=== PATIENT | female | born 1945 | race Caucasian/White ===

== ENCOUNTER 2024-07-19 12:24 | Emergency (ER) | payer MEDICARE, OTHER, SELFPAY ==
[2024-07-19 12:25] VITALS: BP 180/105
--- NOTE | 2024-07-19 13:13 | ED.GENMED ---
History of Present Illness
General
Chief Complaint: Musculo-Skeletal Complaint
Source: patient
Exam Limitations: none
Time Seen by Provider: 07/19/24 13:03
History of Present Illness
History of Present Illness:
Patient with ongoing knee pain. Seen by orthopedics last week. Negative x-ray at that time. Also had an ultrasound done 5 days ago which was unremarkable. However felt a pop in the back of the knee today with increasing pain and increasing pain
with weightbearing. No hip pain no ankle pain. Swelling is actually improved. No fever or chills.
Past History
Past History
ED Past Medical History: Hypercholesterolemia, Hypothyroidism and Other (Orthostatic hypotension)
ED Past Surgical History: Other (Lipoma)
Social History
Tobacco: Non-smoker
Alcohol: None
Drug: None
Personal:
Living: with family
Family History
Family History: Negative Diabetes, Hypertension or CAD
Review of Systems
Review of Systems
All Other Systems: Not applicable
Constitutional: Denies fever or chills
Phy Exam
Physical Exam
Physical Exam:
General: Nontoxic appearing in no distress
Skin: Warm and dry, no rash
Neuro: Alert, nontoxic, grossly nonfocal
Psychiatric: Good eye contact and appropriate
Musculoskeletal: Mild swelling of the right lower leg below the knee. No erythema or warmth. Good distal pulses and color. Good capillary refill. Achilles is intact. Ankle is nontender. Tib-fib nontender. No joint effusion. No warmth or
erythema. No pain with straight leg raising. Some tenderness behind the right knee. No cord.
Course
Orders/Labs/Results
Orders:
Orders
07/19/24 12:29
Knee, Right 4 or More Views [CR Knee- Right 4 Or More View*] Urgent
Comment:
Reason For Exam: felt pop in knee and having diff ambulate
07/19/24 13:12
Ketorolac [Toradol] 60 mg IM NOW STA
US Periph Venous LOWER Ext RT Urgent
Comment:
Reason For Exam: Ongoing posterior knee pain
07/19/24 17:02
Knee Immobilizer Right-Treatme ONCE
Vital Signs
Initial and Last Documented VS:
Initial Vital Signs
Temp Pulse Resp BP Pulse Ox
97.7 F 89 16 180/105 98
07/19/24 12:25 07/19/24 12:25 07/19/24 12:25 07/19/24 12:25 07/19/24 12:25
Last Documented Vital Signs
Temp Pulse Resp BP Pulse Ox
97.7 F 84 18 153/89 98
07/19/24 12:25 07/19/24 17:27 07/19/24 17:27 07/19/24 17:27 07/19/24 12:25
MDM/Problems Addressed
Differential Diagnosis Includes:
Clinically this is a soft tissue injury or issue. Likely meniscal or tendinous. No laxity to the joint. No warmth or swelling. Nothing to support septic arthritis. Nothing to support referred pain from the hip. Good pain with hip rotation.
However with the pain behind the knee and ultrasound 5 days ago feel repeat ultrasound is warranted. If negative knee immobilizer pain management and orthopedic follow-up. Will likely need MRI at some point
*Radiology
Radiology exam reviewed: preliminary read by ED provider (Negative) and radiology read reviewed (Degenerative changes)
*Pulse Oximetry
Patient hypoxic: no
*Critical Care Note
Total Time (30-74mins, 75-104mins- exclusive of procedures): Not Applicable
Update Note
Update Note:
Patient complaining of significant pain with ambulation and unable to bear weight. I did offer admission if she felt like she could not handle being nonweightbearing at home. Stressing that this would likely then lead to a rehabilitation issue.
Patient does not want to stay will stay nonweightbearing with her walker and possibly a wheelchair and will follow-up with orthopedics. Again clinically this is a knee issue. She has no pain with hip rotation.
ED Attending Note
-
Portions of this chart may have been created with voice recognition software.� Occasional wrong word or��sound alike� substitutions may have occurred due to the inherent limitations of voice recognition software.
Discharge Plan
Departure
Patient Disposition: Home (Routine Discharge)
Date of Disposition: 07/19/24
Time of Disposition: 17:02
Patient with high blood pressure during this ER visit?: Yes
Discharge Problem:
Soft tissue injury right knee
Instructions: Knee Pain (DC), BLOOD PRESSURE
Prescriptions:
No Action
atorvastatin 40 MG tablet
40 mg PO DAILY
levothyroxine 50 MCG tablet
50 mcg PO DAILY
halobetasol propionate 1 APPLIC cream
1 applic topical DAILYPRN PRN (Reason: eczema)
fludrocortisone 0.1 MG tablet
0.1 mg PO DAILY
biotin 2,500 MCG capsule
2,500 mcg PO DAILY
rabeprazole [AcipHex] 20 MG tablet,delayed release (DR/EC)
20 mg PO DAILY
riboflavin (vitamin B2) [Vitamin B-2] 100 MG tablet
100 mg PO DAILY
acetaminophen [Tylenol Extra Strength] 500 MG tablet
500 - 1,000 mg PO Q6HPRN PRN (Reason: mild pain/fever)
ascorbic acid (vitamin C) [Vitamin C] 500 MG tablet
1,500 mg PO DAILY
baclofen 10 MG tablet
10 mg PO HS
hyoscyamine sulfate [Levsin/SL] 0.125 MG tablet, sublingual
0.125 mg sublingual DAILYPRN PRN (Reason: ibs)
aspirin 81 MG tablet,chewable
81 mg PO Q48H
hydroxyzine HCl 25 MG tablet
25 mg PO DAILYPRN PRN (Reason: eczema)
ipratropium bromide 1 SPRAY spray,non-aerosol
1 spray intranasal DAILY
cholecalciferol (vitamin D3) 1,000 UNITS tablet
1,000 units PO DAILY
calcium citrate-vitamin D3 [Citracal + D Maximum] 1 EACH tablet
1 ea PO DAILY
lactulose 30 ML solution
1 tsp PO DAILY
multivitamin with folic acid [Tab-A-Yaquelin] 1 TABLET tablet
1 tab PO DAILY
wheat dextrin [Benefiber Sugar Free (dextrin)] 1 EACH powder in packet
1 tsp PO BID@0800,1700
midodrine 5 MG tablet
5 mg PO TID Qty: 0 0RF
Rx Instructions:
hold for blood pressure over 120 mm hg for next 2 days
prednisone 10 mg Tablet
See Rx Instructions .ROUTE .COMPLEX Qty: 30 0RF
Rx Instructions:
Take By Mouth:
40 mg daily x3 days, 30 mg daily x3 days,
20 mg daily x3 days, 10 mg daily x3 days.
hydroxyzine HCl 25 mg tablet
25 mg PO TID PRN (Reason: itching) Qty: 14 0RF
Referrals:
Bryce Clayton MD [Family Provider] -
Delvis Kaur MD [Active] - Next open appointment
Activity Restrictions/Additional Instructions:
Recommend MRI of the knee for further diagnostic value
Interventions
Interventions:
*Risk Screen - Suicide Last Done: 07/19/24 12:25
*General Assessment Last Done: 07/19/24 15:58
*Neglect/Abuse Screening Last Done: 07/19/24 12:25
*Nursing Disposition Last Done: 07/19/24 17:27
ED-Musculoskeletal Assessment Last Done: 07/19/24 13:06
Discharge Date and Time
Discharge Date/Time: 07/19/24 17:28
Print Language: POLISH
[2024-07-19] MEDS: TORADOL 60 MG IM (13:29)
[2024-07-19 16:42] VITALS: BP 153/89
[2024-07-19 17:27] VITALS: BP 153/89
== END 2024-07-19 17:28 | disposition home or self-care (01) ==
LOC: EMR 12:24
PROVIDERS: EMERGENCY PHYSICIAN Emergency Medicine; FAMILY PHYSICIAN Internal Medicine
DX: S89.91XA Unspecified injury of right lower leg, initial encounter (principal); X58.XXXA Exposure to other specified factors, initial encounter; R03.0 Elevated blood-pressure reading, without diagnosis of hypertension
CPT/HCPCS: 99284; 96372; 73564; 93971